=== PATIENT | male | born 1950 | race Caucasian/White ===

== ENCOUNTER 2017-07-18 15:22 | Emergency (ER) ==
[2017-07-18 15:35] VITALS: BP 183/103; TEMP 98.2; BMI 26.2
[2017-07-18] MEDS ORDERED: NORCO 10-325 PO STA (15:51)
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
[2017-07-18] MEDS ORDERED: NORFLEX IM STA (16:30)
[2017-07-18] MEDS ORDERED: TORADOL IM STA (16:30)
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
== END 2017-07-18 16:50 | disposition home or self-care (01) ==
LOC: ED 15:22
DX: S09.90XA Unspecified injury of head, initial encounter (principal); S00.01XA Abrasion of scalp, initial encounter; M54.5 Low back pain; R07.89 Other chest pain; R91.1 Solitary pulmonary nodule; I10 Essential (primary) hypertension; V89.9XXA Person injured in unspecified vehicle accident, initial encounter
CPT/HCPCS: 96372; 99284

== ENCOUNTER 2022-03-14 23:52 | Observation (INO) ==
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
[2022-03-15 00:19] LABS: BASOPHILS # (AUTO) 0.1 K/uL (0-0.2); BASOPHILS % (AUTO) 0.3 % (0.0-3.0); HEMATOCRIT 42.6 % (42.0-52.0); HEMOGLOBIN 14.3 g/dl (14.0-18.0); IMMATURE GRANULOCYTE # (AUTO) 0.1 (0.0-1.0); IMMATURE GRANULOCYTE % (AUTO) 0.6 % (0.0-5.0); LYMPHOCYTES # (AUTO) 4.6 K/uL (0.60-3.4); LYMPHOCYTES % (AUTO) 21.8 (10.0-50.0); MEAN CORPUSCULAR HEMOGLOBIN 31.1 pg (27.0-31.0); MEAN CORPUSCULAR HGB CONC 33.6 (31.8-35.4); MEAN CORPUSCULAR VOLUME 92.6 fl (80.0-94.0); MONOCYTES # (AUTO) 1.6 K/uL (0.4-2.0); MONOCYTES % (AUTO) 7.8 (0-10); NEUTROPHILS # (AUTO) 14.5 K/ul (2.0-6.9); NEUTROPHILS % (AUTO) 69.5 % (42.2-75.2); PLATELET COUNT 417 10^3/uL (140-440); RDW COEFFICIENT OF VARIATION 12.9 % (11.6-14.8); WHITE BLOOD COUNT 20.91 K/ul (4.2-10.2)
[2022-03-15 00:30] LABS: PROTHROMBIN TIME 9.9 SEC (9.3-11.0)
[2022-03-15 00:51] LABS: BILIRUBIN,URINE Negative (NEGATIVE); CLARITY,URINE Clear (CLEAR); COLOR,URINE Yellow (YELLOW); GLUCOSE, URINE (UA) Negative (NEGATIVE); KETONES,URINE Negative (NEGATIVE); LEUKOCYTE ESTERASE ,URINE Negative (NEGATIVE); NITRITE,URINE Negative (NEGATIVE); PH,URINE 5.5 (5-9); PROTEIN,URINE Negative (NEGATIVE); URINE, BLOOD Trace-lysed (NEGATIVE); UROBILINOGEN,URINE 0.2 (0.2)
[2022-03-15 01:00] LABS: SQUAMOUS EPITHELIAL CELL,UR 0-2 (0-5); URINE RBC, MICROSCOPIC 0-2 (0-2)
--- NOTE | 2022-03-15 01:15 | CT ---
EXAM: CT scan brain without contrast HISTORY: Fall COMPARISON: CT scan brain 07/18/2017 FINDINGS: Helically acquired axial images obtained from skull base to the convexities without contra st utilizing 5-mm collimation. Sagittal and coronal reconstructions were imaged and reviewed. The v entricles and CSF spaces are prominent compatible with age appropriate atrophy. There is mild perive ntricular hypodensity noted compatible with chronic microvascular disease. There are no acute intrac ranial findings. There is a moderately large left parietal scalp hematoma. The calvarium is intact. Several air cells are opacified within the right ethmoid sinus. Mastoid air cells are clear. IMPRESSION: No acute intracranial findings. Moderate sized left parietal scalp hematoma All CT scans are performed using dose optimization techniques as appropriate to the performed exam an d include at least one of the following: Automated exposure control, adjustment of the mA and/or kV according t o size, and the use of iterative reconstruction technique.
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
[2022-03-15 01:35] LABS: ALANINE AMINOTRANSFERASE 16.3 U/L (0-50); ALBUMIN 4.63 g/dL (3.5-5.0); ASPARTATE AMINO TRANSFERASE 28.7 U/L (17-59); BILIRUBIN,TOTAL 0.31 mg/dL (0.2-1.3); BLOOD UREA NITROGEN 31.5 mg/dL (9-20); CALCIUM 9.55 mg/dL (8.4-10.2); CARBON DIOXIDE 16.3 mmol/L (22-30.0); CHLORIDE 108.2 mmol/L (98-107); CREATININE 1.2 mg/dL (0.60-1.10); GLUCOSE 102.9 mg/dL (74-106); POTASSIUM 3.62 mmol/L (3.5-5.1); SODIUM 139.6 mmol/L (134.5-145); TOTAL PROTEIN 7.99 g/dL (6.3-8.2)
[2022-03-15 01:55] LABS: AMPHETAMINE SCREEN,URINE NEGATIVE (NEGATIVE); BARBITURATE SCREEN,URINE NEGATIVE (NEGATIVE); BENZODIAZEPINES SCREEN,URINE NEGATIVE (NEGATIVE); CANNABINOID SCREEN,URINE NEGATIVE (NEGATIVE); COCAIN SCREEN,URINE NEGATIVE (NEGATIVE); METHADONE URINE SCREEN NEGATIVE (NEGATIVE); METHAMPHETAMINES SCREEN,URINE NEGATIVE (NEGATIVE); OPIATE SCREEN,URINE NEGATIVE (NEGATIVE); OXYCODONE URINE SCREEN NEGATIVE (NEGATIVE); PHENCYCLIDINE SCREEN,URINE NEGATIVE (NEGATIVE); PROPOXYPHENE URINE SCREEN NEGATIVE (NEGATIVE); TRICYCLIC ANTIDEPRESSANTS URIN NEGATIVE (NEGATIVE)
[2022-03-15] MEDS ORDERED: ZOFRAN 4 MG/2 ML IVP STA (01:56)
[2022-03-15] MEDS ORDERED: PEPCID IVP STA (01:56)
[2022-03-15] MEDS ORDERED: SUBLIMAZE IVP STA ×2 (01:57→03:37)
[2022-03-15 02:33] LABS: CREATINE KINASE 121.9 U/L (55-170)
[2022-03-15 02:47] LABS: TROPONIN I < 0.012 ng/ml (0.0000-0.120)
--- NOTE | 2022-03-15 02:56 | CT ---
EXAM: CT chest without contrast. HISTORY: Trauma. PROCEDURE: Contiguous axial CT images of the chest without contrast with coronal and sagittal reform ats. FINDINGS: The heart and thoracic aorta are within normal limits in size. The mediastinum is normal i n appearance. There are two adjacent nodules in the superior segment of the right lower lobe measuri ng up to 0.6 cm and two left lung nodules measuring up to 0.6 cm. No infiltrate or consolidation. No pneumothorax. There is a dorsal column stimulator. There are degenerative and operative changes in the spine. No evidence of acute fracture. There is a mild chronic anterior wedging and compression deformity of the T12 vertebral body. Impression: No evidence of acute traumatic injury to the chest. Mild chronic anterior wedging and compression deformity of the T12 vertebral body. Bilateral lung nodules as described. Please see Fleischner Society pulmonary nodule guidelines below for recommended follow-up: Solid nodules: Multiple nodules: Multiple nodules size: <6 mm. Low risk patients: no routine follow-up. High risk patient: optional CT at 12 months. Multiple nodules size: 6-8 mm. Low risk patient: follow-up at 3-6 months, then consider further foll ow-up CT at 18-24 months. High risk patient: follow-up CT at 3-6 months, then at 18-24 months if no change. Low risk patient: Minimal or absent history of smoking and/or other known risk factors. High risk patient: History of smoking or of other known risk factors (e.g. first degree relative with lung cancer, or exposure to asbestos, radon, uranium). All CT scans are performed using dose optimization techniques as appropriate to the performed exam an d include at least one of the following: Automated exposure control, adjustment of the mA and/or kV according t o size, and the use of iterative reconstruction technique.
--- NOTE | 2022-03-15 03:15 | CT ---
EXAM: CT of the abdomen and pelvis without contrast. HISTORY: Trauma. PROCEDURE: Contiguous axial CT images of the abdomen and pelvis without contrast with coronal and sa gittal reformats. All CT scans are performed using dose optimization techniques as appropriate to a performed exam including the following: Automated exposure control, Adjustment of the mA and/or kV ac cording to patient size, Use of iterative reconstruction technique. FINDINGS: The exam is limited without IV contrast. The liver, gallbladder, pancreas, spleen and adre nal glands are normal in appearance. There are bilateral renal cysts. There are nonobstructive calc ifications in the kidneys. The abdominal aorta is within normal limits in size. There are atheroscl erotic calcifications in the major arteries of the abdomen and pelvis. The visualized loops of bowel and appendix are normal in appearance. No free fluid or free air in the abdomen or pelvis. The alayna dder is adequately filled and normal in appearance. There is a penile implant with attached reservoi r in the left anterior pelvis. There is a dorsal column stimulator. There are chronic anterior wedg ing and compression deformities of the L1 and L2 vertebral bodies with up to 60% loss of vertebral sarah dy height. No evidence of acute fracture in the lumbar spine and pelvis. There are degenerative prashant nges in the spine. Impression: No evidence of acute traumatic injury to the abdomen and pelvis. Chronic anterior wedging and compression deformities of the L1 and L2 vertebral bodies as described. Nonobstructive bilateral nephrolithiasis. Bilateral renal cysts. Atherosclerotic vascular disease. Penile implant. All CT scans are performed using dose optimization techniques as appropriate to the performed exam an d include at least one of the following: Automated exposure control, adjustment of the mA and/or kV according t o size, and the use of iterative reconstruction technique.
[2022-03-15] MEDS ORDERED: THIAMINE ONE ×2 (03:18→03:24)
[2022-03-15] MEDS ORDERED: FOLIC ACID ONE (03:21)
[2022-03-15] MEDS ORDERED: INFUVITE ADULT IV ONE ×4 (03:24→20:18)
[2022-03-15] MEDS: INFUVITE ADULT 10 ML in DEXTROSE 5%-NS IV SOLUTION 1,000 ML IV SCH ×4 (03:32→20:16)
[2022-03-15] MEDS: THIAMINE 100 MG in SODIUM CHLORIDE 50 ML IV SCH ×2 (03:33→09:41)
[2022-03-15] MEDS: FOLIC ACID 1 MG in SODIUM CHLORIDE 50 ML IV SCH ×2 (03:34→09:05)
[2022-03-15] MEDS ORDERED: COLCRYS PO PRN (04:32)
[2022-03-15] MEDS ORDERED: NARCAN IVP STA (04:39)
[2022-03-15 05:15] VITALS: BMI 26.2
[2022-03-15] MEDS: PRILOSEC PO SCH (05:32)
[2022-03-15] MEDS: NORCO 5-325 PO PRN ×3 (05:32→19:51)
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
[2022-03-15 07:07] LABS: BASOPHILS # (AUTO) 0.1 K/uL (0-0.2); BASOPHILS % (AUTO) 0.3 % (0.0-3.0); EOSINOPHILS # (AUTO) 0.1 K/ul (0.0-0.7); EOSINOPHILS % (AUTO) 0.9 % (0.0-7.0); HEMATOCRIT 38.4 % (42.0-52.0); HEMOGLOBIN 12.8 g/dl (14.0-18.0); IMMATURE GRANULOCYTE # (AUTO) 0.1 (0.0-1.0); IMMATURE GRANULOCYTE % (AUTO) 0.7 % (0.0-5.0); LYMPHOCYTES # (AUTO) 4.7 K/uL (0.60-3.4); LYMPHOCYTES % (AUTO) 31.9 (10.0-50.0); MEAN CORPUSCULAR HEMOGLOBIN 31.1 pg (27.0-31.0); MEAN CORPUSCULAR HGB CONC 33.3 (31.8-35.4); MEAN CORPUSCULAR VOLUME 93.4 fl (80.0-94.0); MONOCYTES # (AUTO) 1.5 K/uL (0.4-2.0); MONOCYTES % (AUTO) 9.8 (0-10); NEUTROPHILS # (AUTO) 8.3 K/ul (2.0-6.9); NEUTROPHILS % (AUTO) 56.4 % (42.2-75.2); PLATELET COUNT 359 10^3/uL (140-440); RDW COEFFICIENT OF VARIATION 13.1 % (11.6-14.8); RED BLOOD COUNT 4.11 10^6/ul (4.70-6.10); WHITE BLOOD COUNT 14.75 K/ul (4.2-10.2)
[2022-03-15 07:30] LABS: ALANINE AMINOTRANSFERASE 13.4 U/L (0-50); ALBUMIN 3.66 g/dL (3.5-5.0); ALKALINE PHOSPHATASE 40.7 U/L (56-119); ASPARTATE AMINO TRANSFERASE 31.7 U/L (17-59); BILIRUBIN,TOTAL 0.3 mg/dL (0.2-1.3); BLOOD ALCOHOL 72.4 mg/dL (0.0-50.0); BLOOD UREA NITROGEN 26.3 mg/dL (9-20); CALCIUM 8.35 mg/dL (8.4-10.2); CHLORIDE 112.3 mmol/L (98-107); CREATININE 0.97 mg/dL (0.60-1.10); POTASSIUM 3.64 mmol/L (3.5-5.1); SODIUM 141.3 mmol/L (134.5-145); TOTAL PROTEIN 6.53 g/dL (6.3-8.2)
[2022-03-15] MEDS: MIRALAX PO SCH (09:05)
[2022-03-15] MEDS: ULORIC PO SCH (10:39)
--- NOTE | 2022-03-15 12:31 | PCM.PROG ---
Date Seen by Provider: 03/15/22 Time Seen by Provider: 12:29 Subjective: pt improving, speech fluent Objective: Vitals: T=98.3 F, P=78, R=18, BP=98/68, SPO2=94 HEENT: []eomi Neck: []supple Lungs: [] clear CVS: []RRR Abdomen: []soft and nontender Extremities: []mike Neurological: []a;ert and oriented Skin: []hard ball size occipital scalp hematoma Lab/Tests/Diagnostic Imaging: [] etoh 79 (1) Contusion of head: Status: Acute Code(s): S00.93XA - Contusion of unspecified part of head, initial encounter SNOMED Code(s): 624565552 (2) Alcohol intoxication: Status: Acute Code(s): F10.929 - Alcohol use, unspecified with intoxication, unspecified SNOMED Code(s): 83388243 Plan: continue neurochecks, d/c home in am care to Dr Harrison at 19:00
[2022-03-15] MEDS ORDERED: TORADOL IVP STA (14:02)
[2022-03-15] MEDS ORDERED: TORADOL IVP ONE (19:44)
[2022-03-16 05:26] LABS: BASOPHILS # (AUTO) 0.1 K/uL (0-0.2); BASOPHILS % (AUTO) 0.8 % (0.0-3.0); EOSINOPHILS # (AUTO) 0.5 K/ul (0.0-0.7); HEMATOCRIT 39.4 % (42.0-52.0); HEMOGLOBIN 13.1 g/dl (14.0-18.0); IMMATURE GRANULOCYTE % (AUTO) 0.4 % (0.0-5.0); LYMPHOCYTES # (AUTO) 4.2 K/uL (0.60-3.4); LYMPHOCYTES % (AUTO) 43.3 (10.0-50.0); MEAN CORPUSCULAR HGB CONC 33.2 (31.8-35.4); MEAN CORPUSCULAR VOLUME 93.4 fl (80.0-94.0); MONOCYTES % (AUTO) 10.5 (0-10); NEUTROPHILS # (AUTO) 3.9 K/ul (2.0-6.9); PLATELET COUNT 344 10^3/uL (140-440); RDW COEFFICIENT OF VARIATION 12.7 % (11.6-14.8); RED BLOOD COUNT 4.22 10^6/ul (4.70-6.10); WHITE BLOOD COUNT 9.74 K/ul (4.2-10.2)
[2022-03-16 05:36] LABS: ALANINE AMINOTRANSFERASE 13.7 U/L (0-50); ALBUMIN 3.22 g/dL (3.5-5.0); ALKALINE PHOSPHATASE 42.8 U/L (56-119); ASPARTATE AMINO TRANSFERASE 17.6 U/L (17-59); BILIRUBIN,TOTAL 0.45 mg/dL (0.2-1.3); BLOOD UREA NITROGEN 24.2 mg/dL (9-20); CALCIUM 8.15 mg/dL (8.4-10.2); CARBON DIOXIDE 25.3 mmol/L (22-30.0); CHLORIDE 105.6 mmol/L (98-107); CREATININE 0.97 mg/dL (0.60-1.10); GLUCOSE 95.5 mg/dL (74-106); POTASSIUM 3.9 mmol/L (3.5-5.1); SODIUM 135.7 mmol/L (134.5-145); TOTAL PROTEIN 5.86 g/dL (6.3-8.2)
[2022-03-16] MEDS: PRILOSEC PO SCH (05:40)
[2022-03-16 07:30] VITALS: BP 119/81; TEMP 96.7
[2022-03-16] MEDS ORDERED: THIAMINE ONE (07:40)
[2022-03-16] MEDS: MIRALAX PO SCH (08:36)
[2022-03-16] MEDS: ULORIC PO SCH (08:37)
[2022-03-16] MEDS: FOLIC ACID 1 MG in SODIUM CHLORIDE 50 ML IV SCH (09:35)
[2022-03-16] MEDS: THIAMINE 100 MG in SODIUM CHLORIDE 50 ML IV SCH (10:13)
--- NOTE | 2022-03-16 11:19 | PCM.PROG ---
Date Seen by Provider: 03/16/22 Time Seen by Provider: 08:15 Subjective: Patient denies headache. He does have some discomfort related to his scalp hematoma. Tolerating oral intake and ambulating without difficulty. Objective: Vitals: T=96.7 F, P=66, R=18, WJ=113/81, SPO2=98 Patient is alert and appears to be comfortable. He answers questions appropriately. HEENT: [] PERRLA. EOMI. Moderate sized occipital hematoma. Neck: [] Supple and nontender. Lungs: [] Chest clear and BS equal. CVS: [] Abdomen: [] Extremities: [] No swelling or deformity. Neurological: [] No motor or sensory deficit. Skin: [] Lab/Tests/Diagnostic Imaging: [] (1) Contusion of head: Status: Acute Code(s): S00.93XA - Contusion of unspecified part of head, initial encounter SNOMED Code(s): 218877252 (2) Alcohol intoxication: Status: Acute Code(s): F10.929 - Alcohol use, unspecified with intoxication, unspecified SNOMED Code(s): 56564659 Assessment: Resolved. Plan: Patient will be discharged to home. He is to follow up with his primary care provider within one week. Tylenol or ibuprofen as directed for pain.
--- NOTE | 2022-03-16 11:38 | PCM.DC ---
Final Diagnosis: acute alcohol intoxication scalp hematoma Physical Exam Appearance: Well-appearing, No pain distress, Well-nourished and Other (Alert, oriented and in NAD.) Ill-appearing: None Pain Distress: None Eyes: DANUTA and EOMI ENT: Nose normal, Oropharynx normal and Other (moderate sized occipital hematoma) Neck: Supple (nontender) Respiratory: Airway patent, Breath sounds clear and Breath sounds equal Cardiovascular: RRR, No rub and No murmur GI/: Not Examined Musculoskeletal: Normal strength, ROM intact and No edema Skin: Warm, Dry and Normal color Neurological: Sensation intact, Motor intact, Alert and Oriented Psychiatric: Affect appropriate and Mood appropriate (1) Contusion of head: Status: Acute Code(s): S00.93XA - Contusion of unspecified part of head, initial encounter SNOMED Code(s): 692237267 (2) Alcohol intoxication: Status: Acute Code(s): F10.929 - Alcohol use, unspecified with intoxication, unspecified SNOMED Code(s): 23385551 Reason for Hospitalization: alcohol intoxication and fall with scalp hematoma Prognosis/Condition at Discharge: Condition at discharge was good. Medications at Discharge: Patient discharged on same medications as he was taking prior to admission. Lab/Diagnostics: CT head without acute intracranial abnormality. Moderate sized left parietal scalp hematoma. Education Provided to Patient and Family: alcohol abuse scalp hematoma Follow-ups: Follow up with your primary care provider within 7-10 days. Discharge Disposition: Home Hospital Course: Patient admitted with parietal scalp hematoma suffered in a ground level fall. He also had acute alcohol intoxication. Patient was observed and had regular neuro checks. His vital signs remained stable. Patient tolerated diet and ambulated without difficulty after he was sober. Plan: Discharge patient to home. Follow up with your primary care provider within 7-10 days.
[2022-03-16] MEDS: INFUVITE ADULT 10 ML in DEXTROSE 5%-NS IV SOLUTION 1,000 ML IV SCH (11:43)
== END 2022-03-16 12:51 | disposition home or self-care (01) ==
LOC: MEDSURG A 23:52 → ED 23:52 → MEDSURG A 03-15 04:45
PROVIDERS: ADMIT Emergency Medicine; ATTEND Surgery
DX: F10.929 Alcohol use, unspecified with intoxication, unspecified; Z51.81 Encounter for therapeutic drug level monitoring; Y92.9 Unspecified place or not applicable; R41.82 Altered mental status, unspecified; Z20.822 Contact with and (suspected) exposure to COVID-19; Z98.890 Other specified postprocedural states; Z96.82 Presence of neurostimulator; Z79.899 Other long term (current) drug therapy; Y99.9 Unspecified external cause status; Y93.I9 Activity, other involving external motion; S00.93XA Contusion of unspecified part of head, initial encounter; V00.841A Fall from standing electric scooter, initial encounter